=== PATIENT | male | born 1955 | race Caucasian/White ===

== ENCOUNTER → 2018-03-25 07:11 | Outpatient (CLI) | payer OTHER, SELFPAY ==
[2018-03-25 10:41] LABS: Absolute Lymphocyte Count 2.05 X10^3/ul (0.83-4.51); Absolute Neutrophil Count 1.8 X10^3/uL (2.0-7.7); Basophil# 0.01 X10^3/uL; Basophil% 0.2 % (0-1); Eosinophil# 0.11 X10^3/uL; Eosinophils% 2.5 % (0-5); Hematocrit 47.5 % (40-54); Hemoglobin 15.3 g/dl (13.0-16.5); Lymphocyte # 2.05 X10^3/ul (4.0); Mean Corp Hgb Conc 32.2 g/gl (32-36); Mean Corpuscular Hgb 27.4 pg (27.0-32.0); Mean Platelet Vol. 10.7 fl (6.2-12.0); Monocyte# 0.49 X10^3/uL; Neutrophil % 40.3 % (47-70); Platelet Count 187 K/mm3 (150-450); RBC Distribution Width CV 13.3 % (11.6-14.6); RBC Distribution Width SD 41.2 fl (35.1-43.9); Red Blood Count 5.59 M/mm3 (4.6-6.2); White Blood Count 4.5 K/mm3 (4.4-11.0)
[2018-03-25 10:47] LABS: POSITIVE COUNT NO; POSITIVE DIFFERENTIAL NO; POSITIVE MORPHOLOGY NO
[2018-03-25 10:53] LABS: ALB/GLOB Ratio 1.1 RATIO (0.9-2.4); AST(SGOT) 23 U/L (15-37); Alanine Aminotransfer ALT/SGPT 42 U/L (16-61); Albumin, Serum 3.9 g/dL (3.2-5.0); Alkaline Phosphatase 43 U/L (45-117); Anion Gap 6 (5-15); BUN 9 mg/dL (7-18); BUN/Creat Ratio 9.4 RATIO (10-20); Calcium,Total 9.1 mg/dL (8.5-10.1); Chloride 107 mmol/L (98-107); Cholesterol 196 mg/dL (200); Creatinine, Serum 0.96 mg/dL (0.70-1.30); EST Glomerular Filtration Rate 85 mL/min (>60); Est Glom Filt Rate - Afr Amer 103 mL/min (>60); Globulin 3.5 g/dL (2.2-4.2); Glucose 90 mg/dL (74-106); High Density Lipoprotein 41 mg/dL; PSA,Total- Diagnostic 3.37 ng/mL (0.0-4.0); Potassium 3.9 mmol/L (3.5-5.1); Protein, Total 7.4 g/dL (6.4-8.2); Sodium Level 142 mmol/L (136-145); Triglycerides 120 mg/dL; Very Low Density Lipoprotein 24 mg/dL (5-40)
== END ==
PROVIDERS: Family Provider Family Medicine; PCP Family Medicine; Visit Provider Family Medicine
DX: Z00.00 Encounter for general adult medical examination without abnormal findings (principal); R97.20 Elevated prostate specific antigen [PSA]; Z12.5 Encounter for screening for malignant neoplasm of prostate
CPT/HCPCS: 36415; 80053; 80061; 84153; 85025

== ENCOUNTER → 2019-01-13 06:08 | Outpatient (CLI) | payer OTHER, SELFPAY ==
[2019-01-13 07:33] LABS: Absolute Lymphocyte Count 2.24 X10^3/ul (0.83-4.51); Absolute Neutrophil Count 2.4 X10^3/uL (2.0-7.7); Basophil# 0.01 X10^3/uL; Basophil% 0.2 % (0-1); Eosinophil# 0.12 X10^3/uL; Eosinophils% 2.2 % (0-5); Hematocrit 47.2 % (40-54); Hemoglobin 15.9 g/dl (13.0-16.5); Lymphocyte # 2.24 X10^3/ul (4.0); Mean Corp Hgb Conc 33.7 g/gl (32-36); Mean Corpuscular Hgb 27.2 pg (27.0-32.0); Mean Corpuscular Volume 80.8 fL (80-94); Mean Platelet Vol. 10.6 fl (6.2-12.0); Monocyte# 0.66 X10^3/uL; Monocyte% 12.1 % (0-10); Neutrophil # 2.44 X10^3/uL (2.7-7.7); Neutrophil % 44.5 % (47-70); Platelet Count 185 K/mm3 (150-450); RBC Distribution Width CV 13.5 % (11.6-14.6); RBC Distribution Width SD 39.7 fl (35.1-43.9); Red Blood Count 5.84 M/mm3 (4.6-6.2); White Blood Count 5.5 K/mm3 (4.4-11.0)
[2019-01-13 07:38] LABS: POSITIVE COUNT NO; POSITIVE DIFFERENTIAL NO; POSITIVE MORPHOLOGY NO
[2019-01-13 08:08] LABS: ALB/GLOB Ratio 1.1 RATIO (0.9-2.4); AST(SGOT) 22 U/L (15-37); Alanine Aminotransfer ALT/SGPT 34 U/L (16-61); Albumin, Serum 3.7 g/dL (3.2-5.0); Alkaline Phosphatase 43 U/L (45-117); Anion Gap 7 (5-15); BUN 11 mg/dL (7-18); BUN/Creat Ratio 10.8 RATIO (10-20); Calcium,Total 8.9 mg/dL (8.5-10.1); Chloride 106 mmol/L (98-107); Cholesterol 199 mg/dL (200); Creatinine, Serum 1.02 mg/dL (0.70-1.30); EST Glomerular Filtration Rate 79 mL/min (>60); Est Glom Filt Rate - Afr Amer 95 mL/min (>60); Globulin 3.4 g/dL (2.2-4.2); Glucose 108 mg/dL (74-106); High Density Lipoprotein 43 mg/dL; PSA,Total - Annual Screen 4.05 ng/mL (0.00-4.00); Potassium 3.8 mmol/L (3.5-5.1); Protein, Total 7.1 g/dL (6.4-8.2); Sodium Level 143 mmol/L (136-145); Triglycerides 139 mg/dL; Very Low Density Lipoprotein 28 mg/dL (5-40)
== END ==
PROVIDERS: Family Provider Family Medicine; PCP Family Medicine; Referring Provider Family Medicine; Visit Provider Family Medicine
DX: Z00.00 Encounter for general adult medical examination without abnormal findings (principal); R73.01 Impaired fasting glucose; Z12.5 Encounter for screening for malignant neoplasm of prostate
CPT/HCPCS: 36415; 80053; 80061; 83036; 84153; 85025; G0103

== ENCOUNTER → 2020-02-16 07:11 | Outpatient (CLI) | payer OTHER, SELFPAY ==
[2020-02-16 10:55] LABS: ALB/GLOB Ratio 1.2 RATIO (0.9-2.4); AST(SGOT) 14 U/L (15-37); Alanine Aminotransfer ALT/SGPT 32 U/L (16-61); Albumin, Serum 3.8 g/dL (3.2-5.0); Alkaline Phosphatase 50 U/L (45-117); Anion Gap 7 (5-15); BUN 10 mg/dL (7-18); BUN/Creat Ratio 10.6 RATIO (10-20); Calcium,Total 8.9 mg/dL (8.5-10.1); Chloride 105 mmol/L (98-107); Cholesterol 183 mg/dL (200); Creatinine, Serum 0.94 mg/dL (0.70-1.30); EST Glomerular Filtration Rate 86 mL/min (>60); Est Glom Filt Rate - Afr Amer 104 mL/min (>60); Globulin 3.3 g/dL (2.2-4.2); Glucose 97 mg/dL (74-106); High Density Lipoprotein 41 mg/dL; PSA,Total - Annual Screen 4.68 ng/mL (0.00-4.00); Protein, Total 7.1 g/dL (6.4-8.2); Sodium Level 141 mmol/L (136-145); Triglycerides 132 mg/dL; Very Low Density Lipoprotein 26 mg/dL (5-40)
[2020-02-16 11:39] LABS: Hemoglobin A1c 5.8 % (3.8-5.6)
== END ==
PROVIDERS: PCP Family Medicine; Referring Provider Family Medicine; Visit Provider Family Medicine
DX: Z00.00 Encounter for general adult medical examination without abnormal findings (principal); R73.03 Prediabetes; Z12.5 Encounter for screening for malignant neoplasm of prostate
CPT/HCPCS: 36415; 80053; 80061; 83036; 84153; G0103

== ENCOUNTER → 2020-12-15 07:30 | Outpatient (CLI) | payer OTHER, SELFPAY ==
[2020-12-15 10:21] LABS: Absolute Lymphocyte Count 2.08 X10^3/uL (0.83-4.51); Absolute Neutrophil Count 3.2 X10^3/uL (2.0-7.7); Basophil# 0.03 X10^3/uL; Basophil% 0.5 % (0-1); Eosinophil# 0.15 X10^3/uL; Eosinophils% 2.5 % (0-5); Hematocrit 49.2 % (40-54); Hemoglobin 15.7 g/dL (13.0-16.5); Lymphocyte # 2.08 X10^3/ul (0.83-4.51); Lymphocyte % 34.3 % (19-41); Mean Corp Hgb Conc 31.9 g/dL (32-36); Mean Corpuscular Hgb 27.2 pg (27.0-32.0); Mean Corpuscular Volume 85.3 fL (80-94); Mean Platelet Vol. 10.6 fl (6.2-12.0); Monocyte# 0.61 X10^3/uL; NRBC Flagged by Analyzer 0 % (0-5); Neutrophil # 3.19 X10^3/uL (2.7-7.7); Neutrophil % 52.5 % (47-70); Platelet Count 190 K/mm3 (150-450); RBC Distribution Width SD 40.6 fl (35.1-43.9); Red Blood Count 5.77 M/mm3 (4.6-6.2); White Blood Count 6.1 K/mm3 (4.4-11.0)
[2020-12-15 10:39] LABS: Hemoglobin A1c 5.6 % (3.8-5.6)
[2020-12-15 10:48] LABS: ALB/GLOB Ratio 1.3 RATIO (0.9-2.4); AST(SGOT) 17 U/L (15-37); Alanine Aminotransfer ALT/SGPT 32 U/L (16-61); Albumin, Serum 4.1 g/dL (3.2-5.0); Alkaline Phosphatase 51 U/L (45-117); Anion Gap 5 (5-15); BUN 10 mg/dL (7-18); BUN/Creat Ratio 12.3 RATIO (10-20); Chloride 104 mmol/L (98-107); Cholesterol 203 mg/dL (200); Creatinine, Serum 0.81 mg/dL (0.70-1.30); EST Glomerular Filtration Rate 102 mL/min (>60); Est Glom Filt Rate - Afr Amer 123 mL/min (>60); Globulin 3.1 g/dL (2.2-4.2); Glucose 95 mg/dL (74-106); High Density Lipoprotein 50 mg/dL; Potassium 3.8 mmol/L (3.5-5.1); Protein, Total 7.2 g/dL (6.4-8.2); Sodium Level 140 mmol/L (136-145); Triglycerides 181 mg/dL; Very Low Density Lipoprotein 36 mg/dL (5-40)
[2020-12-16 20:45] LABS: V-Zoster IgG (Immunity) 829 index (Immune >165)
== END ==
PROVIDERS: PCP Family Medicine; Referring Provider Family Medicine; Visit Provider Family Medicine
DX: Z00.00 Encounter for general adult medical examination without abnormal findings (principal); R73.03 Prediabetes; R97.20 Elevated prostate specific antigen [PSA]; Z28.3 Underimmunization status
CPT/HCPCS: 36415; 80053; 80061; 83036; 84153; 85025; 86787

== ENCOUNTER 2021-11-23 09:26 | Outpatient (CLI) | payer OTHER, SELFPAY ==
[2021-11-23 09:51] LABS: Absolute Lymphocyte Count 2.57 X10^3/uL (0.83-4.51); Absolute Neutrophil Count 3.5 X10^3/uL (2.0-7.7); Basophil# 0.03 X10^3/uL; Basophil% 0.4 % (0-1); Eosinophil# 0.15 X10^3/uL; Eosinophils% 2.2 % (0-5); Hemoglobin 15.5 g/dL (13.0-16.5); Lymphocyte # 2.57 X10^3/ul (0.83-4.51); Lymphocyte % 37.2 % (19-41); Mean Platelet Vol. 10.3 fl (6.2-12.0); Monocyte# 0.61 X10^3/uL; Monocyte% 8.8 % (0-10); NRBC Flagged by Analyzer 0 % (0-5); Neutrophil # 3.53 X10^3/uL (2.7-7.7); Neutrophil % 51.1 % (47-70); Platelet Count 206 K/mm3 (150-450); RBC Distribution Width CV 12.5 % (11.6-14.6); RBC Distribution Width SD 38.7 fl (35.1-43.9); Red Blood Count 5.53 M/mm3 (4.6-6.2); White Blood Count 6.9 K/mm3 (4.4-11.0)
[2021-11-23 10:07] LABS: Hemoglobin A1c 5.8 % (3.8-5.6)
[2021-11-23 10:30] LABS: ALB/GLOB Ratio 1.3 RATIO (0.9-2.4); AST(SGOT) 17 U/L (15-37); Alanine Aminotransfer ALT/SGPT 39 U/L (16-61); Albumin, Serum 4.1 g/dL (3.2-5.0); Alkaline Phosphatase 42 U/L (45-117); Anion Gap 3 (5-15); BUN 12 mg/dL (7-18); BUN/Creat Ratio 13.5 RATIO (10-20); Calcium,Total 9.1 mg/dL (8.5-10.1); Chloride 106 mmol/L (98-107); Cholesterol 214 mg/dL (200); Creatinine, Serum 0.89 mg/dL (0.70-1.30); EST Glomerular Filtration Rate 92 mL/min (>60); Est Glom Filt Rate - Afr Amer 111 mL/min (>60); Globulin 3.2 g/dL (2.2-4.2); Glucose 104 mg/dL (74-106); High Density Lipoprotein 47 mg/dL; PSA,Total - Annual Screen 5.35 ng/mL (0.00-4.00); Potassium 3.9 mmol/L (3.5-5.1); Protein, Total 7.3 g/dL (6.4-8.2); Sodium Level 141 mmol/L (136-145); Thyroid Stim Hormone (TSH) 0.71 uIU/mL (0.358-3.74); Triglycerides 173 mg/dL; Very Low Density Lipoprotein 35 mg/dL (5-40)
[2021-11-25 08:46] LABS: Testosterone Free 6.8 pg/mL (6.6-18.1)
== END 2021-11-23 23:59 | disposition home or self-care (01) ==
LOC: PAVLAB 09:28
PROVIDERS: PCP Family Medicine; Referring Provider Family Medicine; Visit Provider Family Medicine
DX: Z00.00 Encounter for general adult medical examination without abnormal findings (principal); R73.03 Prediabetes; R53.83 Other fatigue
CPT/HCPCS: 36415; 80053; 80061; 83036; 84153; 84402; 84403; 84443; 85025; G0103

== ENCOUNTER → 2022-12-06 | Outpatient (CLI) | payer MEDICARE, OTHER, SELFPAY ==
[2022-12-06 12:24] LABS: Absolute Lymphocyte Count 2.42 X10^3/uL (0.83-4.51); Absolute Neutrophil Count 2.8 X10^3/uL (2.0-7.7); Basophil# 0.02 X10^3/uL; Basophil% 0.3 % (0-1); Eosinophil# 0.18 X10^3/uL; Hematocrit 47.5 % (40-54); Hemoglobin 15.2 g/dL (13.0-16.5); Lymphocyte # 2.42 X10^3/ul (0.83-4.51); Lymphocyte % 40.3 % (19-41); Mean Corpuscular Hgb 27.8 pg (27.0-32.0); Mean Corpuscular Volume 86.8 fL (80-94); Mean Platelet Vol. 10.6 fl (6.2-12.0); NRBC Flagged by Analyzer 0 % (0-5); Neutrophil # 2.78 X10^3/uL (2.7-7.7); Neutrophil % 46.2 % (47-70); Platelet Count 207 K/mm3 (150-450); RBC Distribution Width CV 13.1 % (11.6-14.6); RBC Distribution Width SD 41.1 fl (35.1-43.9); Red Blood Count 5.47 M/mm3 (4.6-6.2)
[2022-12-06 12:48] LABS: ALB/GLOB Ratio 1.3 RATIO (0.9-2.4); AST(SGOT) 21 U/L (15-37); Alanine Aminotransfer ALT/SGPT 39 U/L (16-61); Albumin, Serum 3.9 g/dL (3.2-5.0); Alkaline Phosphatase 37 U/L (45-117); Anion Gap 3 (5-15); BUN 12 mg/dL (7-18); BUN/Creat Ratio 14.4 RATIO (10-20); Calcium,Total 9.3 mg/dL (8.5-10.1); Chloride 104 mmol/L (98-107); Cholesterol 199 mg/dL (200); Creatinine, Serum 0.83 mg/dL (0.70-1.30); EST Glomerular Filtration Rate 99 mL/min (>60); Est Glom Filt Rate - Afr Amer 119 mL/min (>60); Glucose 109 mg/dL (74-106); High Density Lipoprotein 45 mg/dL; PSA,Total - Annual Screen 3.97 ng/mL (0.00-4.00); Potassium 3.7 mmol/L (3.5-5.1); Protein, Total 6.9 g/dL (6.4-8.2); Sodium Level 137 mmol/L (136-145); Triglycerides 173 mg/dL; Very Low Density Lipoprotein 35 mg/dL (5-40)
[2022-12-06 12:49] LABS: Erythrocyte Sedimentation Rate < 1 mm/hr (0-20)
[2022-12-06 13:12] LABS: Hemoglobin A1c 5.7 % (3.8-5.6)
== END | disposition home or self-care (01) ==
LOC: BFHLAB 08:10
PROVIDERS: PCP Family Medicine; Referring Provider Family Medicine; Visit Provider Family Medicine
DX: R73.03 Prediabetes (principal); I10 Essential (primary) hypertension; M25.511 Pain in right shoulder; M25.512 Pain in left shoulder; Z12.5 Encounter for screening for malignant neoplasm of prostate
CPT/HCPCS: 36415; 80053; 80061; 83036; 84153; 85025; 85652; G0103

== ENCOUNTER → 2024-03-11 | Outpatient (CLI) | payer MEDICARE, OTHER, SELFPAY ==
[2024-03-11 08:36] LABS: Absolute Lymphocyte Count 2.65 X10^3/uL (0.83-4.51); Absolute Neutrophil Count 2.9 X10^3/uL (2.0-7.7); Basophil# 0.03 X10^3/uL; Basophil% 0.5 % (0-1); Eosinophil# 0.19 X10^3/uL; Hematocrit 45.8 % (40-54); Hemoglobin 15.2 g/dL (13.0-16.5); Lymphocyte # 2.65 X10^3/ul (0.83-4.51); Lymphocyte % 41.4 % (19-41); Mean Corp Hgb Conc 33.2 g/dL (32-36); Mean Corpuscular Hgb 27.5 pg (27.0-32.0); Mean Platelet Vol. 10.6 fl (6.2-12.0); Monocyte# 0.63 X10^3/uL; Monocyte% 9.8 % (0-10); NRBC Flagged by Analyzer 0 % (0-5); Neutrophil # 2.89 X10^3/uL (2.7-7.7); Neutrophil % 45.1 % (47-70); Platelet Count 195 K/mm3 (150-450); RBC Distribution Width CV 13.2 % (11.6-14.6); RBC Distribution Width SD 39.6 fl (35.1-43.9); Red Blood Count 5.52 M/mm3 (4.6-6.2); White Blood Count 6.4 K/mm3 (4.4-11.0)
[2024-03-11 09:20] LABS: ALB/GLOB Ratio 1.1 RATIO (0.9-2.4); AST(SGOT) 18 U/L (15-37); Alanine Aminotransfer ALT/SGPT 23 U/L (16-61); Albumin, Serum 3.9 g/dL (3.2-5.0); Alkaline Phosphatase 43 U/L (45-117); Anion Gap 5 (5-15); BUN 10 mg/dL (7-18); BUN/Creat Ratio 10.2 RATIO (10-20); Calcium,Total 9.2 mg/dL (8.5-10.1); Chloride 106 mmol/L (98-107); Cholesterol 209 mg/dL (200); Creatinine, Serum 0.98 mg/dL (0.70-1.30); EST Glomerular Filtration Rate 81 mL/min (>60); Est Glom Filt Rate - Afr Amer 98 mL/min (>60); Globulin 3.4 g/dL (2.2-4.2); Glucose 97 mg/dL (74-106); High Density Lipoprotein 45 mg/dL; PSA,Total - Annual Screen 4.69 ng/mL (0.00-4.00); Potassium 3.7 mmol/L (3.5-5.1); Protein, Total 7.3 g/dL (6.4-8.2); Sodium Level 140 mmol/L (136-145); Triglycerides 175 mg/dL; Very Low Density Lipoprotein 35 mg/dL (5-40)
== END | disposition home or self-care (01) ==
LOC: LAB 07:25
PROVIDERS: PCP Family Medicine; Referring Provider Family Medicine; Visit Provider Family Medicine
DX: I10 Essential (primary) hypertension (principal); E87.1 Hypo-osmolality and hyponatremia; R97.20 Elevated prostate specific antigen [PSA]; R73.03 Prediabetes; Z12.5 Encounter for screening for malignant neoplasm of prostate
CPT/HCPCS: 36415; 80053; 80061; 83036; 84153; 85025; G0103

== ENCOUNTER → 2024-06-16 | Outpatient (CLI) | payer MEDICARE, OTHER, SELFPAY ==
[2024-06-18 16:10] LABS: Endomysial Antibody IgA Negative (Negative); Immunoglobulin A 35 mg/dL (61-437); t-Transglutaminase IgA <2 U/mL (0-3)
== END | disposition home or self-care (01) ==
LOC: LAB 15:00
PROVIDERS: PCP Family Medicine; Referring Provider Student in an Organized Health Care Education/Training Program; Visit Provider Student in an Organized Health Care Education/Training Program
DX: R14.0 Abdominal distension (gaseous) (principal)
CPT/HCPCS: 36415; 82784; 83516; 86255

== ENCOUNTER 2024-07-06 05:51 | Day surgery (SDC) | payer MEDICARE, OTHER, SELFPAY ==
[2024-07-06] VITALS (8 sets, daily range): BP systolic 90–165; BP diastolic 55–81; PULSE 67–74; RESP 16–18; TEMP 36.2–37; O2SAT 97–100; BMI 25.2
--- NOTE | 2024-07-06 06:38 | PRE.ANES_ITS ---
ASA Classification* ASA Classification ASA Classification: 2 Assessment & Plan Anesthesia* Anesthesia Assessment Anesthesia Assessment: Discussed sedation and/or anesthesia options, risks, benefits, and alternatives with patient/parents/legal guardian/POA. Questions invited. The patient/parents/legal guardian/POA seems to understand and agrees to proceed with anesthesia plan. Reviewed the physical assessment, medical history, allergy history and patient home medications list prior to surgery/procedure/anesthetic and documented any changes. Performed airway and anesthesia risk assessments. Anesthesia Type Anesthesia Type: MAC Anesthesia Focused Assessment* Temperature: 97.1 F Pulse Rate: 74 Blood Pressure: 165/81 Respiratory Rate: 16 Pulse Ox: 100 Airway Assessment Mouth opens: >3 cm Mallampati Score: II Focused Labs Anesthesia Preop lab: CBC WBC 6.4 K/mm3 (4.4-11.0) 03/11/24 07:26 RBC 5.52 M/mm3 (4.6-6.2) 03/11/24 07:26 Hgb 15.2 g/dL (13.0-16.5) 03/11/24 07:26 Hct 45.8 % (40-54) 03/11/24 07:26 Plt Count 195 K/mm3 (150-450) 03/11/24 07:26 CHEMISTRY Potassium 3.7 mmol/L (3.5-5.1) 03/11/24 07:26 Sodium 140 mmol/L (136-145) 03/11/24 07:26 BUN 10 mg/dL (7-18) 03/11/24 07:26 Creatinine 0.98 mg/dL (0.70-1.30) 03/11/24 07:26 Glucose 97 mg/dL (74-106) 03/11/24 07:26 TSH 0.71 uIU/mL (0.358-3.74) 11/23/21 09:30 COAG Pre-Assessment Diagnosis/Proposed Procedure Planned Operative Procedure(s): COLONOSCOPY Anesthesia History 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 When Was Last Pacemaker Check QUESTION #4 FULL TEXT: You/Your Family Experience fever (hyperthermia) with Anesthesia Last Oral Intake Last Oral intake: Last Oral Intake NPO since 03:00 07/06/24 06:16 Meds taken in AM with sips of No 07/06/24 06:16 water? Meds patient instructed to take am of surgery PONV PONV - radiation control health physicist: PONV - radiation control health physicist Female No 07/02/24 10:29 HX of Motion Sickness Yes 07/02/24 10:29 HX of N/V After Surgery No 07/02/24 10:29 Non-Smoker Yes 07/02/24 10:29 Duration of Surgery greater No 07/02/24 10:29 than 60 minutes Number of Risk Factors 2 07/02/24 10:29 PONV Score Moderate Risk 07/02/24 10:29 Height & Weight Height & Weight: Anesthesia: Height & Weight Height 5 ft 11 in 07/06/24 06:16 Weight: 82 kg 07/06/24 06:16 Body Mass Index (BMI) 25.2 07/06/24 06:16 Respiratory Assessment Respiratory Assessment - radiation control health physicist: Respiratory Tract Infection Hx - radiation control health physicist Hx Respiratory Tract Infection No 07/02/24 10:29 STOP Sleep Apnea STOP Sleep Apnea - radiation control health physicist: STOP Sleep Apnea - radiation control health physicist Hx Hypertension No 07/02/24 10:29 Hx Sleep Apnea No 07/02/24 10:29 CPAP No 04/27/15 08:26 BIPAP No 04/22/15 13:24 Do you snore loudly (louder Yes 07/02/24 10:29 than talking or can be heard Do you often feel tired/ No 07/02/24 10:29 fatigued/ sleepy during daytime? Has anyone observed you stop No 07/02/24 10:29 breathing during sleep? STOP Results Negative 07/02/24 10:29 QUESTION #5 FULL TEXT : Do you snore loudly (louder than talking or can be heard through closed doors)? Tobacco Use History Tobacco Use History - radiation control health physicist: Tobacco Use History - radiation control health physicist Tobacco Use Smoking Status Never smoker 07/02/24 10:29 Hx Tobacco Use No 07/02/24 10:29 Years Smoking Packs Smoked per Day Smoking Cessation Date was within the last 15 years Hx Smoking Cessation Date Hx Smoking Cessation Counseling Hematologic Medial History Hematologic Hx - radiation control health physicist: Hematologic Medical Hx - steward/stewardess second Hx of Blood Transfusion No 07/02/24 10:29 Hx of Transfusion in last 3 No 07/02/24 10:29 Months Date of Last Transfusion (if within last 3 months) Ever experience any problems No 07/02/24 10:29 with transfusion(s)? Specify any problems Hx of Preganancy in last 3 N/A 07/02/24 10:29 Months Nurse Filling Out Transfusion [email or web address] 07/02/24 10:29 & Questions: Date: 07/02/24 07/02/24 10:29 Time: 10:32 07/02/24 10:29 Patient unable to answer at this time (ie. confused, unrespo /Reproduction History /Reproductive History - radiation control health physicist: /Reproductive Hx- radiation control health physicist Hx Now Gestational Age (in weeks): EDC: Hx Hx Para Hx Section SAB PFSH Medical History Wears glasses Deviated septum Kidney stones Glaucoma suspect Nummular eczema Benign hematuria BPH (benign prostatic hyperplasia) Hip pain Hypertriglyceridemia Elevated PSA Osteoarthritis of hands, bilateral Costal chondritis Fibromyalgia Arthritis Irritable bowel syndrome Hypertension Prediabetes Home Medications ?Medication ?Instructions ?Recorded ?Last Taken ?Type omega-3 acid ethyl esters 1 gram 2 g PO DAILY 04/22/15 Unknown History capsule hydrocodone-acetaminophen 5-325mg 1 - 2 tab PO Q4H PRN PRN Pain ##20 04/27/15 Unknown Rx 5mg-325mg vitamin B complex 1 tab PO QDAY 05/19/24 Unknown History Allergy/AdvReac Type Severity Reaction Status Date / Time shrimp Allergy Other Verified 05/25/24 07:42 Sulfa (Sulfonamide Allergy Rash Verified 05/25/24 07:42 Antibiotics) latanoprost AdvReac Other Verified 05/25/24 07:42 Family History Brother Diabetes Sister Diabetes Grandmother Diabetes Grandfather Diabetes Mother High cholesterol Joint pain Father High cholesterol Hypertension Surgical History H/O removal of cyst Social History Smoking Status: Never smoker alcohol intake: never what type of physical activity do you participate in: bicycling frequency: 3-4 times per week Review of Systems (Anesthesia) ROS Narrative System reviewed and no additional complaints, except as documented.
--- NOTE | 2024-07-06 06:46 | HP.PCM_ITS ---
History and Physical Date of Admission: 07/06/24 Chief Complaint: Positive Cologuard Details: ERICK HAUSER, is a 68 M who presents to the office today for establishment with [facility]. Pt has a PMHx elevated PSA, OA, fibromyalgia, IBS and HTN. Here is here today for evaluation after a positive Cologuard test. He tells me his last colonoscopy was about 15 years ago without any abnormalities or polyps. He has recently noticed some increased bloating and increased stool frequency but nothing else. He has always had issues with bloating after eating certain foods like gluten, peanuts and fried food. He has had food allergen testing in the past which was normal. He has never been tested for celiac disease. He denies abdominal pain, n/v, heartburn, constipation, diarrhea or melena. ROS Const Constitutional: No anorexia, fatigue, fever(s), weight change or sleep problems Eyes Eyes: No change in vision ENT ENT: No abnormal hearing, difficulty swallowing, mouth lesions, tongue swelling or throat swelling Resp Respiratory: No cough or shortness of breath Cardio Cardiology: No chest pain at rest, chest pain with exertion, shortness of breath or dyspnea on exertion Gastro GI: Positive for bloating and other (increased stool frequency ); No difficulty swallowing Genitourinary Male: No difficulty urinating or burning urination Musc Musculoskeletal: No joint pain, joint swelling, muscle weakness or decreased muscle mass Skin Skin: No hair loss in leg, yellowing of the eye, itchy eyes, rash, skin ulcer or skin swelling Neuro Neurology: No abnormal hearing, abnormal movements, confusion, unsteady gait/balance or memory loss Psych Psychiatric: No anxiety, No confusion and No memory loss Endo Endocrine: No fatigue or weight change Aller/Imm Allergy/Immunologic: No itchy eyes, throat swelling or tongue swelling Edu/Lymp Hematologic/Lymphatic: No easy bleeding, easy bruising or enlarged lymph nodes Exam Const General: cooperative and comfortable Nutritional Appearance: average body habitus and well nourished [facility] Head: normal to inspection Ears: hearing grossly normal bilaterally Nose: external nose normal Face and sinus: normal facial exam Eyes General: appearance normal, both eyes and all related structures Neck Neck: normal visual inspection Chest Chest palpation & inspection: normal inspection of the chest Resp Effort & Inspection: normal respiratory effort Cardio Palpation: normal PMI Rate: regular rate Rhythm: regular rhythm GI Inspection: normal to inspection Auscultation: normal bowel sounds Palpation: no hepatosplenomegaly Skin General: no rashes or lesions noted Neuro General: patient alert Extrem General: normal to inspection Psych Affect: normal affect Assessment and Plan Assessment and Plan (1) Abdominal bloating: Status: Acute (2) Positive colorectal cancer screening using Cologuard test: Status: Acute Plan: Pt is a 68 yo male here today for evaluation after having a positive Cologuard test. His last colonoscopy was 15 years ago without abnormalities. He has noticed some increased bloating and stool frequency but denies other abdominal symptoms. He mentioned having some issues with bloating when he eats foods with gluten. I recommended we test for Celiac since he has never had this done before. He declines food allergy testing. I will order blood testing for Celiac disease. He should also undergo colonoscopy for his positive colorectal cancer screening. He is agreeable to this and will be scheduled. All questions answered. -Colonoscopy -Celiac disease blood work -f/u as needed pending colonposcy and blood work results Orders: Orders Celiac Disease Profile Today R14.0 - Abdominal distension (gaseous) I have examined the patient and the H&P has been reviewed. There are no clinical changes since date of exam.
--- NOTE | 2024-07-06 07:40 | OP.COLON_ITS ---
Patient Name: Chris Maki Procedure Date: 07/06/2024 7:13 AM Date of : 1955 Age: 68 Procedure: Colonoscopy Indications: Screening for colorectal malignant neoplasm Providers: Loco Walker DO Referring MD: Ayush Andino Medicines: Monitored Anesthesia Care Patient Profile: This is a 68 year old male. Refer to note in patient chart for documentation of history and physical. Last Colonoscopy: date unknown. Unable to locate last colonoscopy report. Complications: No immediate complications. Procedure: Pre-Anesthesia Assessment: - Prior to the procedure, a History and Physical was performed, and patient medications and allergies were reviewed. The patient is competent. The risks and benefits of the procedure and the sedation options and risks were discussed with the patient. All questions were answered and informed consent was obtained. Patient identification and proposed procedure were verified by the physician. Mental Status Examination: alert and oriented. Prophylactic Antibiotics: The patient does not require prophylactic antibiotics. Prior Anticoagulants: The patient has taken no anticoagulant or antiplatelet agents except for NSAID medication. ASA Grade Assessment: II - A patient with mild systemic disease. After reviewing the risks and benefits, the patient was deemed in satisfactory condition to undergo the procedure. The anesthesia plan was to use monitored anesthesia care (MAC). Immediately prior to administration of medications, the patient was re-assessed for adequacy to receive sedatives. The heart rate, respiratory rate, oxygen saturations, blood pressure, adequacy of pulmonary ventilation, and response to care were monitored throughout the procedure. The physical status of the patient was re-assessed after the procedure. After I obtained informed consent, the scope was passed under direct vision. Throughout the procedure, the patient's blood pressure, pulse, and oxygen saturations were monitored continuously. The colonoscope was introduced through the anus and advanced to the cecum, identified by appendiceal orifice and ileocecal valve. The colonoscopy was performed without difficulty. The patient tolerated the procedure well. The quality of the bowel preparation was adequate. The ileocecal valve, appendiceal orifice, and rectum were photographed. Scope In: 7:25:28 AM Scope Withdrawal Time 0 hours 6 minutes 32 seconds Scope Out: 7:35:28 AM Total Procedure Duration Time 0 hours 10 minutes 0 seconds Findings: The perianal and digital rectal examinations were normal. A few small-mouthed diverticula were found in the recto-sigmoid colon and sigmoid colon. The exam was otherwise without abnormality on direct and retroflexion views. Impression: - Diverticulosis in the recto-sigmoid colon and in the sigmoid colon. - The examination was otherwise normal on direct and retroflexion views. - No specimens collected. Recommendation: - Discharge patient to home. - Resume previous diet. - Continue present medications. - Repeat colonoscopy in 10 years for screening purposes. Procedure Code(s): --- Professional --- G0121, Colorectal cancer screening; colonoscopy on individual not meeting criteria for high risk CPT copyright 2021 [employer]. All rights reserved. The codes documented in this report are preliminary and upon chemistry intern review may be revised to meet current compliance requirements. Looc Walker DO 07/06/2024 7:39:59 AM This report has been signed electronically. Number of Addenda: 0 Note Initiated On: 07/06/2024 7:13 AM
--- NOTE | 2024-07-06 07:40 | OP.CCLET_ITS ---
07/06/2024 Ayush Andino [id number] [place] [address] Re : Colonoscopy procedure for Chris Maki Dear Dr. Andino This procedure was performed on Saturday, July 06, 2024. My impressions and recommendations are as follows: Impressions : - Diverticulosis in the recto-sigmoid colon and in the sigmoid colon. - The examination was otherwise normal on direct and retroflexion views. - No specimens collected. Recommendations : - Discharge patient to home. - Resume previous diet. - Continue present medications. - Repeat colonoscopy in 10 years for screening purposes. My findings are described in the full procedure note, which is enclosed. If I can be of further assistance, please feel free to contact me at . Sincerely, Loco Walker, 07/06/2024 7:39:59 AM This report has been signed electronically.
--- NOTE | 2024-07-06 07:44 | PCM.POST.ANE ---
Anesthesia: Postop Eval I Current Vital Signs Temperature: 97.7 F Pulse Rate: 74 Blood Pressure: 103/63 Respiratory Rate: 16 Pulse Ox: 97 Oxygen Delivery Method: Room Air Assessment Airway patent: Yes Spontaneous unlabored respirations: Yes Mental status: Asleep nausea: No Vomiting: No Anesthesia Complication: No Fluid Hydration Crystalloid volume administer (ml): 40 Total IV fluid infused: 40 Progress Note Anesthesia document: Postop Eval 1 completed: Yes
--- NOTE | 2024-07-06 09:21 | PCM.POSTANE2 ---
Anesthesia Postop Eval I Sum Postop Eval Completion status Anesthesia document: Postop Eval 1 completed: Yes Anesthesia Postop Eval I Summary Anesthesia Postop Eval I Summary: Anesthesia Postop Eval I: Assessment Summary Airway patent Yes 07/06/24 07:44 [email or web address] Spontaneous unlabored Yes 07/06/24 07:44 [email or web address] respirations Mental status Asleep 07/06/24 07:44 [email or web address] nausea No 07/06/24 07:44 [email or web address] Vomiting No 07/06/24 07:44 [email or web address] Anesthesia Postop Eval I: Fluid Summary Crystalloid volume administer 40 07/06/24 07:44 [email or web address] (ml) Colloids volume administered ( ml) Blood Product volume administered (ml) Total IV fluid infused 40 07/06/24 07:44 [email or web address] Anesthesia Postop Eval I: Summary Notes Anesthesia Complication No 07/06/24 07:44 [email or web address] Anesthesia Complication Comment: Post-operative progress note Anesthesia: Postop Eval II Evaluation Mental status: Awake Pain Level: 0 nausea: No Vomiting: No
== END 2024-07-06 08:29 | disposition home or self-care (01) ==
LOC: EN 05:51 → AC 05:52
PROVIDERS: PCP Family Medicine; Referring Provider Family Medicine; Visit Provider Internal Medicine Gastroenterology
PROC: 0DJD8ZZ Inspection of Lower Intestinal Tract, Via Natural or Artificial Opening Endoscopic (ICD-10-PCS; CPT 45378; principal; 2024-07-06 06:55)
DX: Z12.11 Encounter for screening for malignant neoplasm of colon (principal); K57.30 Diverticulosis of large intestine without perforation or abscess without bleeding; R14.0 Abdominal distension (gaseous); R19.5 Other fecal abnormalities
CPT/HCPCS: G0121; A4216; J2405

== ENCOUNTER → 2024-11-12 | Outpatient (CLI) | payer MEDICARE, OTHER, SELFPAY | END | disposition home or self-care (01) | LOC: PSN 06:43 | PROVIDERS: PCP Family Medicine; Referring Provider Family Medicine; Visit Provider Family Medicine | DX: R00.2 Palpitations (principal) | CPT/HCPCS: 93225; 93226 ==

== ENCOUNTER → 2025-05-14 | Outpatient (CLI) | payer MEDICARE, OTHER, SELFPAY ==
--- OUTSIDE RECORDS SUMMARY | 2025-05-14 07:25 | XMS RPT_ITS | CCD ---
Author Organization [facility] Care Team Providers Care Computer Systems Design Analyst Name Role Phone Dr. Ayush Andino DO Primary Care Provider Dr. Ayush Andino DO Attending Provider Dr. Ayush Andino DO Referring Provider [phone] [place] AMADOR, Dr. Aguilar Attending Provider Ayush Andino Referring Unavailable Ayush Andino Primary Care Unavailable Friend, Loco Consulting Unavailable Friend, Loco Attending Unavailable Friend, Loco Attending Unavailable Ayush Andino Referring Unavailable Thu, Ayush Primary Care Unavailable Thu, Ayush Referring Unavailable Thu, Ayush Primary Care Unavailable ThuAyush dinero Attending Unavailable ChuchonasEvelyn agudelo Attending Unavailable ChuchonasEvelyn agudelo Referring Unavailable Thu, Ayush Primary Care Unavailable Thu, Ayush Referring Unavailable Thu, Ayush Primary Care Unavailable ThuAyush dinero Attending Unavailable AtanasovEvelyn Attending Unavailable ThuAyush dinero Referring Unavailable Thu, Ayush Primary Care Unavailable Thu, Ayush Referring Unavailable Jeff Mead Attending Unavailable ThuAyush dinero Primary Care Unavailable Allergies Allergy Classification Reported Allergen(s) Allergy Type Date of Onset Reaction(s) Facility (4 sources) Sulfonamides (Antibiotic); Translations: [Sulfa (Sulfonamide Antibiotics)] Allergy to substance [address] [facility] (1 source) latanoprost Drug Allergy [address] [facility] Comment on above: heart flutter (1 source) shrimp allergenic extract Drug Allergy [address] [facility] (1 source) latanoprost Drug Allergy [address] [facility] Repository (1 source) Shrimp product Drug allergy (disorder) [address] [facility] Repository Medications Current Medications Medication Drug Class(es) Dates Sig (Normalized) Sig (Original) acetaminophen 325 mg / HYDROcodone bitartrate 5 mg oral tablet (3 sources) Opioid Agonist Start: 04-27-2015 Hydrocodone-Acetam inophen 1 TABLET tablet Active 1 - 2 {tbl} PO EVERY 4 HOURS NEEDED as needed for Pain April 27, 2015 12:00am Start: 04-27-2015 take 1 tablet by arthur th every four hours as needed Hydrocodone-Acetaminophen Active 1 - 2 TABLET PO EVERY 4 HOURS NEEDED April 27, 2015 8:06am omega-3 acid ethyl esters (fdc) 1000 mg oral capsule (3 sources) Start: 04-22-2015 take 1 capsule by mouth once daily [place]-3 Acid Ethyl Esters 1 GM capsule Active 2 g PO DAILY April 22, 2015 12:00am Vitamin B Complex tablet (1 source) Start: 05-19-2024 Vitamin B Comp scar tablet Active 1 {tbl} PO daily May 19, 2024 12:00am Problems Active Problems Problem Classification Problem Date Documented Da te Episodic/Chronic Cardiac dysrhythmias (1 source) Palpitations; Translations: [Palpitations] Onset: 11-17-2024 Episodic Essential hypertension (2 sources) Hypertensive disorder; Translations: [Essential (primary) hypertension] Onset: 04-05-2024 05-19-2024 Chronic Glaucoma (1 source) Preglaucoma, unspecified, unspecified eye; Translations: [Glaucoma suspect] 05-19-2024 Chronic Osteoarthritis (2 sources) Arthritis; Translations: [Unspecified osteoarthritis, unspecified site] 05-19-2024 Chronic Other bone disease and musculoskeletal deformities (1 source) Costal chondritis; Translations: [Chondrocostal junction syndrome [Tietze]] 05-19-2024 Episodic Other connective tissue disease (1 source) Fibromyalgia; Translations: [Fibromyalgia] 05-19-2024 Episodic Other gastrointestinal disorders (1 source) Irritable bowel syndrome; Translations: [Irritable bowel syndrome without diarrhea] 05-19-2024 Chronic Other gastrointestinal disorders (1 source) Abdominal bloating; Translations: [Abdominal distension (gaseous)] 05-25-2024 Episodic Other gastrointestinal disorders (1 source) Stool DNA-based colorectal cancer screening positive; Translations: [Other fecal abnormalities] 05-25-2024 Episodic Past or Other Problems Problem Classification Problem Date Documented Da te Episodic/Chronic Other gastrointestinal disorders (1 source) Abdominal distension (gaseous); Translations: [Abdominal distension (gaseous)] Onset: 07-07-2024 Episodic Other gastrointestinal disorders (1 source) Other fecal abnormalities; Translations: [Other fecal abnormalities] Onset: 05-25-2024 Episodic Other screening for suspected conditions (not mental disorders or infectious disease) (2 sources) Raised prostate specific antigen; Translations: [Elevated prostate specific antigen [PSA]] Onset: 08-02-2024 05-19-2024 Episodic Results Test Name Value Interpretation Reference Range Facility Colonoscopy Reporton 024 Colonoscopy Report [facility] Medical Records Department [address] [place] [address] Colonoscopy Report MR#: [id number] Acct: [id number] Name: CHRIS HAUSER Rep #: [id number] : 1955 68 From: Loco Walker DO PCP: Dr. Ayush Andino DO Status:REG [facility] Patient Name: Chris Hauser Procedure Date: 07/06/2024 7:13 AM Date of : 1955 Age: 68 Procedure: Colonoscopy Indications: Screening for colorectal malignant neoplasm Providers: Loco Walker DO Referring MD: Ayush Andino Medicines: Monitored Anesthesia Care Patient Profile: This is a 68 year old male. Refer to note in patient chart for documentation of history and physical. Last Colonoscopy: date unknown. Unable to locate last colonoscopy report. Complications: No immediate complications. Procedure: Pre-Anesthesia Assessment: - Prior to the procedure, a History and Physical was performed, and patient medications and allergies were reviewed. The patient is competent. The risks and benefits of the procedure and the sedation options and risks were discussed with the patient. All questions were answered and informed consent was obtained. Patient identification and proposed procedure were verified by the physician. Mental Status Examination: alert and oriented. Prophylactic Antibiotics: The patient does not require prophylactic antibiotics. Prior Anticoagulants: The patient has taken no anticoagulant or antiplatelet agents except for NSAID medication. ASA Grade Assessment: II - A patient with mild systemic disease. After reviewing the risks and benefits, the patient was deemed in satisfactory condition to undergo the procedure. The anesthesia plan was to use monitored anesthesia care (MAC). Immediately prior to administration of medications, the patient was re-assessed for adequacy to receive sedatives. The heart rate, respiratory rate, oxygen saturations, blood pressure, adequacy of pulmonary ventilation, and response to care were monitored throughout the procedure. The physical status of the patient was re-assessed after the procedure. After I obtained informed consent, the scope was passed under direct vision. Throughout the procedure, the patient's blood pressure, pulse, and oxygen saturations were monitored continuously. The colonoscope was introduced through the anus and advanced to the cecum, identified by appendiceal orifice and ileocecal valve. The colonoscopy was performed without difficulty. The patient tolerated the procedure well. The quality of the bowel preparation was adequate. The ileocecal valve, appendiceal orifice, and rectum were photographed. Scope In: 7:25:28 AM Scope Withdrawal Time 0 hours 6 minutes 32 seconds Scope Out: 7:35:28 AM Total Procedure Duration Time 0 hours 10 minutes 0 seconds Findings: The perianal and digital rectal examinations were normal. A few small-mouthed diverticula were found in the recto-sigmoid colon and sigmoid colon. The exam was otherwise without abnormality on direct and retroflexion views. Impression: - Diverticulosis in the recto-sigmoid colon and in the sigmoid colon. - The examination was otherwise normal on direct and retroflexion views. - No specimens collected. Recommendation: - Discharge patient to home. - Resume previous diet. - Continue present medications. - Repeat colonoscopy in 10 years for screening purposes. Procedure Code(s): --- Professional --- G0121, Colorectal cancer screening; colonoscopy on individual not meeting criteria for high risk CPT copyright 2021 [employer]. All rights reserved. The codes documented in this report are preliminary and upon cherry cutter review may be revised to meet current compliance requirements. Loco Walker DO 07/06/2024 7:39:59 AM This report has been signed electronically. Number of Addenda: 0 Note Initiated On: 07/06/2024 7:13 AM 07/06/24 0740 Date Loco Hintonignstaci Signature: Date (if indicated) CC: Dr. Ayush Andino DO; Loco Walker DO Date Dictated: 07/06/24712 Date Transcribed: Academic Records Specialist: RF Signed [facility] MR/POSTOP.ANEon 07-06-2024 MR/POSTOP.[facility] Medical Records Department [address] [place] [address] Anesthesia Postop Eval I 07/06/24743 MR#: [id number] Acct: [id number] Name: CHRIS HAUSER Rep #: [id number] : 1955 68 From: Aman Moore PCP: Dr. Ayush Andino DO Status:REG [facility] Y Race: C Location: [place] [address] Anesthesia: Postop Eval I Current Vital Signs Temperature: 97.7 F Pulse Rate: 74 Blood Pressure: 103/63 Respiratory Rate: 16 Pulse Ox: 97 Oxygen Delivery Method: Room Air Assessment Airway patent: Yes Spontaneous unlabored respirations: Yes Mental status: Asleep nausea: No Vomiting: No Anesthesia Complication: No Fluid Hydration Crystalloid volume administer (ml): 40 Total IV fluid infused: 40 Progress Note Anesthesia document: Postop Eval 1 completed: Yes 07/06/24743 Date Aman Lawrence Signature: Date CC: Signed [facility] [id number] 07-06-2024 MR/POSTOPAN2 [facility] Medical Records Department [address] [place] [address] Anesthesia Postop Eval II 07/06/2421 MR#: [id number] Acct: [id number] Name: CHRIS HAUSER Rep #: [id number] : 1955 68 From: Amilcar Franklin MD PCP: Dr. Ayush Andino, DO Status:DEP [facility] Y Race: C Location: EN Anesthesia Postop Eval I Sum Postop Eval Completion status Anesthesia document: Postop Eval 1 completed: Yes Anesthesia Postop Eval I Summary Anesthesia Postop Eval I Summary: Anesthesia Postop Eval I: Assessment Summary Airway patent Yes 07/06/24 07:44 [email or web address] Spontaneous unlabored Yes 07/06/24 07:44 [email or web address] respirations Mental status Asleep 07/06/24 07:44 [email or web address] nausea No 07/06/24 07:44 [email or web address] Vomiting No 07/06/24 07:44 [email or web address] Anesthesia Postop Eval I: Fluid Summary Crystalloid volume administer 40 07/06/24 07:44 [email or web address] (ml) Colloids volume administered ( ml) Blood Product volume administered (ml) Total IV fluid infused 40 07/06/24 07:44 [email or web address] Anesthesia Postop Eval I: Summary Notes Anesthesia Complication No 07/06/24 07:44 [email or web address] Anesthesia Complication Comment: Post-operative progress note Anesthesia: Postop Eval II Evaluation Mental status: Awake Pain Level: 0 nausea: No Vomiting: No 07/06/24920 Date Amilcar Franklin MD Cosign Signature: Date CC: Signed Normal [facility] Celiac Disease Profileon ENDOMYSIAL IGA Negative Normal Negative [facility] Comment on above: Performed By: #### L 3410.2400 #### [facility] [address] [place], [address] IMMUNOGLOB A QN 35 mg/dL Low 61-[address] [facility] Comment on above: Result Comment: Resu lt confirmed on concentration. Performed By: #### L 3410.2400 #### [facility] [address] [place], [place], [address] tTG IGA <2 Normal 0-[address] [facility] Comment on above: Result Comment: Nega tive 0 - 3 Weak Positive 4 - 10 Positive >10 Tissue Transglutaminase (tTG) has been identified as the endomysial antigen. Studies have demonstr- ated that endomysial IgA antibodies have over 99% specificity for gluten sensitive enteropathy. Performed By: #### L 3410.2400 #### [facility] [address] [place], [place], [address] tTG IGG 3 U/mL Normal 0-[address] [facility] Comment on above: Result Comment: Nega tive 0 - 5 Weak Positive 6 - 9 Positive >9 Performed at: [address] [id number] Swim Coach: Edison Mansfield PhD, Phone: [phone] Performed By: #### L 3410.2400 #### [facility] [address] [place], [place], [address] Gastroenterology Visit Repor [facility] 05-25-2024 Gastroenterology Visit Report [facility] [address] [place] [address] OFFICE VISIT Date of Service: 05/25/24 MR#: [id number] Acct: [id number] Name: CHRIS HAUSER Rep #: [id number] : 1955 Provider: BRENDEN Nuñez Age/Sex: 68/M Location: [facility] Status: Signed Intake Intake Visit Reasons: POSITIVE COLOGUARD Chief Complaint: Positive Cologuard Accompanied by: Allergies shrimp Allergy (Verified 05/25/24 07:42) Other Sulfa (Sulfonamide Antibiotics) Allergy (Verified 05/25/24 07:42) Rash latanoprost Adverse Reaction (Verified 05/25/24 07:42) Other Medications ???Medication ???Instructions ???Recorded ???Confirmed ???Type omega-3 acid ethyl esters 1 gram 2 g PO DAILY 04/22/15 05/25/24 History capsule hydrocodone-acetaminop hen 5-325mg 1 - 2 tab PO Q4H PRN PRN Pain ##20 04/27/15 Rx 5mg-325mg vitamin B complex 1 tab PO QDAY 05/19/24 05/19/24 History Have you fallen in the past year?: No PFSH Medical History Glaucoma suspect Nummular eczema Benign hematuria BPH (benign prostatic hyperplasia) Hip pain Hypertriglyceridemia Elevated PSA Osteoarthritis of hands, bilateral Costal chondritis Fibromyalgia Arthritis Irritable bowel syndrome Hypertension Prediabetes Surgical History H/O removal of cyst Family History Brother Diabetes Sister Diabetes Grandmother Diabetes Grandfather Diabetes Mother High cholesterol Joint pain Father High cholesterol Hypertension Social History Smoking Status: Never smoker alcohol intake: never what type of physical activity do you participate in: bicycling frequency: 3-4 times per week HPI HPI Chief Complaint: Positive Cologuard Details: CHRIS HAUSER, is a 68 M who presents to the office today for establishment with [facility]. Pt has a PMHx elevated PSA, OA, fibromyalgia, IBS and HTN. Here is here today for evaluation after a positive Cologuard test. He tells me his last colonoscopy was about 15 years ago without any abnormalities or polyps. He has recently noticed some increased bloating and increased stool frequency but nothing else. He has always had issues with bloating after eating certain foods like gluten, peanuts and fried food. He has had food allergen testing in the past which was normal. He has never been tested for celiac disease. He denies abdominal pain, n/v, heartburn, constipation, diarrhea or melena. ROS Const Constitutional: No anorexia, fatigue, fever(s), weight change or sleep problems Eyes Eyes: No change in vision ENT ENT: No abnormal hearing, difficulty swallowing, mouth lesions, tongue swelling or throat swelling Resp Respiratory: No cough or shortness of breath Cardio Cardiology: No chest pain at rest, chest pain with exertion, shortness of breath or dyspnea on exertion Gastro GI: Positive for bloating and other (increased stool frequency ); No difficulty swallowing Genitourinary Male: No difficulty urinating or burning urination Musc Musculoskeletal: No joint pain, joint swelling, muscle weakness or decreased muscle mass Skin Skin: No hair loss in leg, yellowing of the eye, itchy eyes, rash, skin ulcer or skin swelling Neuro Neurology: No abnormal hearing, abnormal movements, confusion, unsteady gait/balance or memory loss Psych Psychiatric: No anxiety, No confusion and No memory loss Endo Endocrine: No fatigue or weight change Aller/Imm Allergy/Immunologic: No itchy eyes, throat swelling or tongue swelling Edu/Lymp Hematologic/Lymphatic: No easy bleeding, easy bruising or enlarged lymph nodes Exam Const General: cooperative and comfortable Nutritional Appearance: average body habitus and well nourished HENMT Head: normal to inspection Ears: hearing grossly normal bilaterally Nose: external nose normal Face and sinus: normal facial exam Eyes General: appearance normal, both eyes and all related structures Neck Neck: normal visual inspection Chest Chest palpation inspection: normal inspection of the chest Resp Effort Inspection: normal respiratory effort Cardio Palpation: normal PMI Rate: regular rate Rhythm: regular rhythm GI Inspection: normal to inspection Auscultation: normal bowel sounds Palpation: no hepatosplenomegaly Skin General: no rashes or lesions noted Neuro General: patient alert Extrem General: normal to inspection Psych Affect: normal affect Assessment and Plan Assessment and Plan (1) Abdominal bloating: Status: Acute (2) Positive colorectal cancer screening using Cologuard test: Status: Acute Plan: Pt is a 68 yo male here today for donald (more content not included)... Normal [facility] CBC W/Diff, Automatedon 07-3 Absolute Lymph 2.65 X10 3/uL Normal 0.83-4.[address] [facility] Comment on above: Performed By: #### L 500.4100, L100.0100, L501.9910, L500.4050, L501.9985 #### [facility] [address] [place], [place], [id number] Absolute Neut 2.9 X10 3/uL Normal 2.0-7.[address] [facility] Comment on above: Performed By: #### L 500.4100, L100.0100, L501.9910, L500.4050, L501.9985 #### [facility] [address] [place], [address] Basophils/100 WBC (Bld) 0.5 % Normal 0-[address] [facility] Comment on above: Performed By: #### L 500.4100, L100.0100, L501.9910, L500.4050, L501.9985 #### [facility] [address] [place], [address] Eosinophils/100 WBC (Bld) 3.0 % Normal 0-[address] [facility] Comment on above: Performed By: #### L 500.4100, L100.0100, L501.9910, L500.4050, L501.9985 #### [facility] [address] [place], [address] Erythrocyte distribution width (RBC) [Ratio] 13.2 % Normal 11.6-14.[address] [facility] Comment on above: Performed By: #### L 500.4100, L100.0100, L501.9910, L500.4050, L501.9985 #### [facility] [address] [place], [address] Hematocrit (Bld) [Volume fraction] 45.8 % Normal 40-[address] [facility] Comment on above: Performed By: #### L 500.4100, L100.0100, L501.9910, L500.4050, L501.9985 #### [facility] [address] [place], [address] Hemoglobin (Bld) [Mass/Vol] 15.2 g/dL Normal 13.0-16.[address] [facility] Comment on above: Performed By: #### L 500.4100, L100.0100, L501.9910, L500.4050, L501.9985 #### [facility] [address] [place], [address] IG% 0.200 Normal 0.0-0.[address] [facility] Comment on above: Result Comment: IG% - Immature Granulocytes (promyelocytes, myelocytes and metamyelocytes) > 1% indicates that a LEFT SHIFT is Present. Performed By: #### L 500.4100, L100.0100, L501.9910, L500.4050, L501.9985 #### [facility] [address] [place], [address] Lymphocytes/100 WBC (Bld) 41.4 % High 19-[address] [facility] Comment on above: Performed By: #### L 500.4100, L100.0100, L501.9910, L500.4050, L501.9985 #### [facility] [address] [place], [address] MCH (RBC) [Entitic mass] 27.5 pg Normal 27.0-32.[address] [facility] Comment on above: Performed By: #### L 500.4100, L100.0100, L501.9910, L500.4050, L501.9985 #### [facility] [address] [place], [address] MCHC (RBC) [Mass/Vol] 33.2 g/dL Normal 32-36 [facility] Comment on above: Performed By: #### L 500.4100, L100.0100, L501.9910, L500.4050, L501.9985 #### [facility] [address] [place], [address] MCV (RBC) [Entitic vol] 83.0 fL Normal 80-[address] [facility] Comment on above: Performed By: #### L 500.4100, L100.0100, L501.9910, L500.4050, L501.9985 #### [facility] [address] [place], [address] Monocytes/100 WBC (Bld) 9.8 % Normal 0-[address] [facility] Comment on above: Performed By: #### L 500.4100, L100.0100, L501.9910, L500.4050, L501.9985 #### [facility] [address] [place], [address] Neutrophils/100 WBC (Bld) 45.1 % Low 47-[address] [facility] Comment on above: Performed By: #### L 500.4100, L100.0100, L501.9910, L500.4050, L501.9985 #### [facility] [address] [place], [address] Nucleated RBC (Bld) [#/Vol] 0 10*3/uL Normal 0-[address] [facility] Comment on above: Performed By: #### L 500.4100, L100.0100, L501.9910, L500.4050, L501.9985 #### [facility] [address] [place], [address] Platelet mean volume (Bld) [Entitic vol] 10.6 fL Normal 6.2-12.[address] [facility] Comment on above: Performed By: #### L 500.4100, L100.0100, L501.9910, L500.4050, L501.9985 #### [facility] [address] [place], [address] Platelets (Bld) [#/Vol] 195 10*3/uL Normal 150-[address] [facility] Comment on above: Performed By: #### L 500.4100, L100.0100, L501.9910, L500.4050, L501.9985 #### [facility] [address] [place], [address] RBC (Bld) [#/Vol] 5.52 10*6/uL Normal 4.6-6.2 [facility] Comment on above: Performed By: #### L 500.4100, L100.0100, L501.9910, L500.4050, L501.9985 #### [facility] [address] [place], [address] RDW SD 39.6 fl Normal 35.1-43.[address] [facility] Comment on above: Performed By: #### L 500.4100, L100.0100, L501.9910, L500.4050, L501.9985 #### [facility] [address] [place], [address] WBC (Bld) [#/Vol] 6.4 10*3/uL Normal 4.4-11.0 [facility] Comment on above: Performed By: #### L 500.4100, L100.0100, L501.9910, L500.4050, L501.9985 #### [facility] [address] [place], [address] Comprehensive Metabolic Prof [facility] 03-11-2024 Albumin [Mass/Vol] 3.9 g/dL Normal 3.2-5.0 [facility] Comment on above: Performed By: #### L 500.4100, L100.0100, L501.9910, L500.4050, L501.9985 #### [facility] [address] [place], [address] Albumin/Globulin [Mass ratio] 1.1 {ratio} Normal 0.9-2.[address] [facility] Comment on above: Performed By: #### L 500.4100, L100.0100, L501.9910, L500.4050, L501.9985 #### [facility] [address] [place], [address] ALK P 43 U/L Low 45-[address] [facility] Comment on above: Performed By: #### L 500.4100, L100.0100, L501.9910, L500.4050, L501.9985 #### [facility] [address] [place], [address] ALT [Catalytic activity/Vol] 23 U/L Normal 16-[address] [facility] Comment on above: Performed By: #### L 500.4100, L100.0100, L501.9910, L500.4050, L501.9985 #### [facility] [address] [place], [address] AST [Catalytic activity/Vol] 18 U/L Normal 15-[address] [facility] Comment on above: Performed By: #### L 500.4100, L100.0100, L501.9910, L500.4050, L501.9985 #### [facility] [address] [place], [address] Bilirubin [Mass/Vol] 0.50 mg/dL Normal 0.20-1.00 [facility] Comment on above: Result Comment: For patients on eltrombopag therapy, use of Dimension [place] TBIL is not recommended. Performed By: #### L 500.4100, L100.0100, L501.9910, L500.4050, L501.9985 #### [facility] [address] [place], [address] BUN/CRE 10.2 RATIO Normal 10-[address] [facility] Comment on above: Performed By: #### L 500.4100, L100.0100, L501.9910, L500.4050, L501.9985 #### [facility] [address] [place], [address] CA,Total 9.2 mg/dL Normal 8.5-10.[address] [facility] Comment on above: Performed By: #### L 500.4100, L100.0100, L501.9910, L500.4050, L501.9985 #### [facility] [address] [place], [address] Chloride [Moles/Vol] 106 mmol/L Normal 98-107 [facility] Comment on above: Performed By: #### L 500.4100, L100.0100, L501.9910, L500.4050, L501.9985 #### [facility] [address] [place], [address] CO2 [Moles/Vol] 29.0 mmol/L Normal 21.0-32.[address] [facility] Comment on above: Performed By: #### L 500.4100, L100.0100, L501.9910, L500.4050, L501.9985 #### [facility] [address] [place], [address] Creatinine [Mass/Vol] 0.98 mg/dL Normal 0.70-1.30 [facility] Comment on above: Result Comment: The validity of the calculated GFR GFRAA in patients over 70 years has not been determined. Clinical correlation is essential. Performed By: #### L 500.4100, L100.0100, L501.9910, L500.4050, L501.9985 #### [facility] [address] [place], [address] EST GFR - AA 98 mL/min Normal >[address] [facility] Comment on above: Result Comment: Afri can [place] GFR Calc Performed By: #### L 500.4100, L100.0100, L501.9910, L500.4050, L501.9985 #### [facility] [address] [place], [address] GAP 5 Normal 5-[address] [facility] Comment on above: Performed By: #### L 500.4100, L100.0100, L501.9910, L500.4050, L501.9985 #### [facility] [address] [place], [address] GFR/1.73 sq M.predicted among non-blacks MDRD (S/P/Bld) [Vol rate/Area] 81 mL/min/{1.73_m2} Normal >[address] [facility] Comment on above: Result Comment: Non- GFR Calc Performed By: #### L 500.4100, L100.0100, L501.9910, L500.4050, L501.9985 #### [facility] [address] [place], [address] Globulin (S) [Mass/Vol] 3.4 g/dL Normal 2.2-4.[address] [facility] Comment on above: Performed By: #### L 500.4100, L100.0100, L501.9910, L500.4050, L501.9985 #### [facility] [address] [place], [address] Glucose [Mass/Vol] 97 mg/dL Normal 74-106 [facility] Comment on above: Performed By: #### L 500.4100, L100.0100, L501.9910, L500.4050, L501.9985 #### [facility] [address] [place], [address] Potassium [Moles/Vol] 3.7 mmol/L Normal 3.5-5.1 [facility] Comment on above: Performed By: #### L 500.4100, L100.0100, L501.9910, L500.4050, L501.9985 #### [facility] [address] [place], [address] Sodium [Moles/Vol] 140 mmol/L Normal 136-145 [facility] Comment on above: Performed By: #### L 500.4100, L100.0100, L501.9910, L500.4050, L501.9985 #### [facility] [address] [place], [address] T PROT 7.3 g/dL Normal 6.4-8.[address] [facility] Comment on above: Performed By: #### L 500.4100, L100.0100, L501.9910, L500.4050, L501.9985 #### [facility] [address] [place], [address] Urea nitrogen [Mass/Vol] 10 mg/dL Normal 7-[address] [facility] Comment on above: Performed By: #### L 500.4100, L100.0100, L501.9910, L500.4050, L501.9985 #### [facility] [address] [place], [address] Hemoglobin A1con 03-11-2024 HbA1c (Bld) [Mass fraction] 6.0 % High 3.8-5.[address] [facility] Comment on above: Result Comment: Norm al < 5.7 % Prediabetic 5.7 - 6.4 % Diabetic >or= 6.5 % Please note range changes. Performed By: #### L 500.4100, L100.0100, L501.9910, L500.4050, L501.9985 #### [facility] [address] [place], [address] Lipid Profileon 03-11-2024 Cholesterol [Mass/Vol] 209 mg/dL High 200 [facility] Comment on above: Result Comment: <200 mg/dL Desirable 200-240 mg/dL Borderline >240 mg/dL High Risk Performed By: #### L 500.4100, L100.0100, L501.9910, L500.4050, L501.9985 #### [facility] [address] [place], [address] Cholesterol in HDL [Mass/Vol] 45 mg/dL Normal [facility] Comment on above: Result Comment: The drugs N-Acetylcysteine and Metamizole may falsely depress this assay. Reference Range HDL <40 mg/dL Low HDL Cholesterol HDL >or= 60 mg/dL High HDL Cholesterol Performed By: #### L 500.4100, L100.0100, L501.9910, L500.4050, L501.9985 #### [facility] [address] [place], [address] Cholesterol in LDL [Mass/Vol] 129 mg/dL Normal 0-[address] [facility] Comment on above: Performed By: #### L 500.4100, L100.0100, L501.9910, L500.4050, L501.9985 #### [facility] [address] [place], [address] Cholesterol in VLDL [Mass/Vol] 35 mg/dL Normal 5-[address] [facility] Comment on above: Performed By: #### L 500.4100, L100.0100, L501.9910, L500.4050, L501.9985 #### [facility] [address] [place], [address] Triglyceride [Mass/Vol] 175 mg/dL Normal [facility] Comment on above: Result Comment: The drugs N-Acetylcysteine and Metamizole may falsely depress this assay. Serum Triglycerides Reference Interval Normal <150 mg/dL Borderline high 150 - 199 mg/dL High 200 - 499 mg/dL Very High > or = 500 mg/dL Performed By: #### L 500.4100, L100.0100, L501.9910, L500.4050, L501.9985 #### [facility] [address] [place], [address] PSA,Total - Annual Screenon 03-11-2024 PSA,TOT SCREEN 4.69 ng/mL High 0.00-4.[address] [facility] Comment on above: Result Comment: This test was performed using the TPSA assay method for the Dimension chemistry system. Values obtained with different assay methods cannot be used interchangably. When changing PSA assays in the course of monitoring a patient, additional sequential testing should be carried out to confirm baseline values. Performed By: #### L 500.4100, L100.0100, L501.9910, L500.4050, L501.9985 #### [facility] [place], [address] Absolute lymphocyte countOrd ered By: Dr. Andino on 12-06-2022 Lymphocytes Auto (Unsp spec) [#/Vol] 2.42 10*3/uL 0.83-4.[address] [facility] Basophil percentageOrdered B y: Dr. Andino on 12-06-2022 Basophils/100 WBC (Bld) 0.3 % 0-[address] [facility] Bilirubin [Mass/Vol] 0.50 mg/dL 0.20-1.00 [facility] Comment on above: For patients on eltr ombopag therapy, use of Dimension [place] TBIL is not recommended. Chloride [Moles/Vol] 104 mmol/L 98-107 [facility] Cholesterol [Mass/Vol] 199 mg/dL <200 [facility] Comment on above: <200 mg/dL Desirable 200-240 mg/dL Borderline >240 mg/dL High Risk Eosinophils/100 WBC (Bld) 3.0 % 0-[address] [facility] Glucose [Mass/Vol] 109 mg/dL 74-106 [facility] Comment on above: Fasting Glucose resu lt from 100 to 125 mg/dL suggests IMPAIRED HOMEOSTASIS per A.D.A. criteria. Neutrophils (Bld) [#/Vol] 2.8 10*3/uL 2.0-7.[address] [facility] Neutrophils/100 WBC (Bld) 46.2 % 47-[address] [facility] Potassium [Moles/Vol] 3.7 mmol/L 3.5-5.1 [facility] Protein [Mass/Vol] 6.9 g/dL 6.4-8.2 [facility] Sodium [Moles/Vol] 137 mmol/L 136-145 [facility] Triglyceride [Mass/Vol] 173 mg/dL <[address] [facility] Comment on above: The drugs N-Acetylcy steine and Metamizole may falsely depress this assay.Serum Triglycerides Reference Interval Normal <150 mg/dL Borderline high 150 - 199 mg/dL High 200 - 499 mg/dL Very High > or = 500 mg/dL WBC (Bld) [#/Vol] 6.0 10*3/uL 4.4-11.0 [facility] Blood erythrocytes count (nu mber/volume)Ordered By: Dr. Andino on 12-06-2022 RBC (Bld) [#/Vol] 5.47 10*6/uL 4.6-6.2 [facility] Blood hemoglobin measurement (mass/volume)Ordered By: Dr. Andino on 12-06-2022 Hemoglobin (Bld) [Mass/Vol] 15.2 g/dL 13.0-16.[address] [facility] Blood lymphocytes/100 leukoc ytesOrdered By: Dr. Andino on 12-06-2022 Lymphocytes/100 WBC (Bld) 40.3 % 19-[address] [facility] Blood monocytes/100 leukocyt esOrdered By: Dr. Andino on 12-06-2022 Monocytes/100 WBC (Bld) 10.0 % 0-[address] [facility] Blood platelet mean volumeOr dered By: Dr. Andino on 12-06-2022 Platelet mean volume (Bld) [Entitic vol] 10.6 fL 6.2-12.[address] [facility] Determination of erythrocyte mean corpuscular volume (MCV)Ordered By: Dr. Andino on 12-06-2022 MCV (RBC) [Entitic vol] 86.8 fL 80-[address] [facility] Erythrocyte sedimentation ra teOrdered By: Dr. Andino on 12-06-2022 ESR (Bld) [Velocity] mm/h 0-20 [facility] Hematocrit Auto (Bld) [Volum e fraction]Ordered By: Dr. Andino on 12-06-2022 Hematocrit (Bld) [Volume fraction] 47.5 % 40-[address] [facility] - Chemistry and C hemistry - challengeOrdered By: Dr. Andino on 12-06-2022 ALP [Catalytic activity/Vol] 37 U/L 45-[address] [facility] ALT [Catalytic activity/Vol] 39 U/L 16-[address] [facility] CO2 [Moles/Vol] 30.0 mmol/L 21.0-32.[address] [facility] Globulin (S) [Mass/Vol] 3.0 g/dL 2.2-4.[address] [facility] Urea nitrogen/Creatinine [Mass ratio] 14.4 mg/mg 10-[address] [facility] - Hematology and Cell countsOrdered By: Dr. Andino on 12-06-2022 Erythrocyte distribution width (RBC) [Entitic vol] 41.1 fL 35.1-43.[address] [facility] Erythrocyte distribution width (RBC) [Ratio] 13.1 % 11.6-14.[address] [facility] Immature granulocytes/100 WBC (Bld) 0.200 % 0.0-0.[address] [facility] Comment on above: IG% - Immature Granu locytes (promyelocytes, myelocytes and metamyelocytes) > 1% indicates that a LEFT SHIFT is Present. MCH (RBC) [Entitic mass] 27.8 pg 27.0-32.[address] [facility] Nucleated RBC/100 WBC (Bld) [Ratio] 0 % 0-[address] [facility] MCHC Auto (RBC) [Mass/Vol]Or dered By: Dr. Andino on 12-06-2022 MCHC (RBC) [Mass/Vol] 32.0 g/dL 32-36 [facility] No Panel InformationOrdered By: Dr. Andino on 12-06-2022 Estimated GFR (MDRD) Amer 119 mL/min >[address] [facility] Comment on above: GFR Calc Estimated GFR (MDRD) Non-Af Amer 99 mL/min >[address] [facility] Comment on above: Non- GFR Calc Prostate Specific Antigen Screen 3.97 ng/mL 0.00-4.[address] [facility] Comment on above: This test was perfor med using the TPSA assay method [facility] the[facility]. Values obtained with differentassay methods cannot be used interchangably.When changing PSA assays in the course of monitoring apatient, additional sequential testing should be carriedout to confirm baseline values. Platelets bldOrdered By: Dr. Andino on 12-06-2022 Platelets (Bld) [#/Vol] 207 10*3/uL 150-[address] [facility] Serum or plasma albumin phillip urement (mass/volume)Ordered By: Dr. Andino on 12-06-2022 Albumin [Mass/Vol] 3.9 g/dL 3.2-5.0 [facility] Serum or plasma albumin/glob ulin mass ratioOrdered By: Dr. Andino on 12-06-2022 Albumin/Globulin [Mass ratio] 1.3 {ratio} 0.9-2.[address] [facility] Serum or plasma calcium phillip urement (mass/volume)Ordered By: Dr. Andino on 12-06-2022 Calcium [Mass/Vol] 9.3 mg/dL 8.5-10.1 [facility] Serum or plasma cholesterol in HDL measurement (mass/volume)Ordered By: Dr. Andino on 12-06-2022 Cholesterol in HDL [Mass/Vol] 45 mg/dL >[address] [facility] Comment on above: The drugs N-Acetylcy steine and Metamizole may falsely depress this assay. Reference Range HDL <40 mg/dL Low HDL Cholesterol HDL >or= 60 mg/dL High HDL Cholesterol Serum or plasma cholesterol in VLDL measurement (mass/volume)Ordered By: Dr. Andino on 12-06-2022 Cholesterol in VLDL [Mass/Vol] 35 mg/dL 5-[address] [facility] Serum or plasma creatinine m easurement (mass/volume)Ordered By: Dr. Andino on 12-06-2022 Creatinine [Mass/Vol] 0.83 mg/dL 0.70-1.30 [facility] Comment on above: The validity of the calculated GFR & GFRAA in patients over 70 years has not been determined. Clinical correlation is essential. Serum or plasma low density lipoprotein (LDL) cholesterol measurement (mass/volume)Ordered By: Dr. Andino on 12-06-2022 Cholesterol in LDL [Mass/Vol] 119 mg/dL 0-[address] [facility] Serum or plasma urea nitroge n measurement (mass/volume)Ordered By: Dr. Andino on 12-06-2022 Urea nitrogen [Mass/Vol] 12 mg/dL 7-[address] [facility] Thin prep Papanicolaou smear with manual screeningOrdered By: Dr. Andino on 12-06-2022 Thin prep Papanicolaou smear with manual screening 21 U/L 15-[address] [facility] Thin prep Papanicolaou smear with manual screening 3 5-[address] [facility] Whole blood hemoglobin A1c/t otal hemoglobin ratio (mass fraction)Ordered By: Dr. Andino on 12-06-2022 HbA1c (Bld) [Mass fraction] 5.7 % 3.8-5.[address] [facility] Comment on above: Normal < 5.7 % Predi abetic 5.7 - 6.4 % Diabetic >or= 6.5 % Please note range changes. Absolute lymphocyte counton 11-23-2021 Lymphocytes Auto (Unsp spec) [#/Vol] 2.57 10*3/uL 0.83-4.[address] [facility] Work Phone: Basophil percentageon 2021 Basophils/100 WBC (Bld) 0.4 % 0-[address] [facility] Work Phone: Bilirubin [Mass/Vol] 0.40 mg/dL 0.20-1.00 [facility] Work Phone: Comment on above: For patients on eltr ombopag therapy, use of Dimension [place] TBIL is not recommended. Chloride [Moles/Vol] 106 mmol/L 98-107 [facility] Work Phone: Cholesterol [Mass/Vol] 214 mg/dL <200 [facility] Work Phone: Comment on above: <200 mg/dL Desirable 200-240 mg/dL Borderline >240 mg/dL High Risk Eosinophils/100 WBC (Bld) 2.2 % 0-[address] [facility] Work Phone: Glucose [Mass/Vol] 104 mg/dL 74-106 [facility] Work Phone: Comment on above: Fasting Glucose resu lt from 100 to 125 mg/dL suggests IMPAIRED HOMEOSTASIS per A.D.A. criteria. Neutrophils (Bld) [#/Vol] 3.5 10*3/uL 2.0-7.[address] [facility] Work Phone: Neutrophils/100 WBC (Bld) 51.1 % 47-[address] [facility] Work Phone: Potassium [Moles/Vol] 3.9 mmol/L 3.5-5.1 [facility] Work Phone: Protein [Mass/Vol] 7.3 g/dL 6.4-8.2 [facility] Work Phone: Sodium [Moles/Vol] 141 mmol/L 136-145 [facility] Work Phone: Testosterone [Mass/Vol] 484.69 ng/dL [facility] Work Phone: Comment on above: CENTRAL 90% REFERENC E RANGES MALE AGE <50 197.44 - 669.58 ng/dL MALE AGE > or = 50 187.72 - 684.19 ng/dL FEMALE AGE <50 8.38 - 35.01 ng/dL FEMALE AGE > or = 50 <7.00 - 35.92 ng/dL Effective as of 03/07/21 Triglyceride [Mass/Vol] 173 mg/dL [facility] Work Phone: Comment on above: The drugs N-Acetylcy steine and Metamizole may falsely depress this assay.Serum Triglycerides Reference Interval Normal <150 mg/dL Borderline high 150 - 199 mg/dL High 200 - 499 mg/dL Very High > or = 500 mg/dL WBC (Bld) [#/Vol] 6.9 10*3/uL 4.4-11.0 [facility] Work Phone: Blood erythrocytes count (nu mber/volume)on 11-23-2021 RBC (Bld) [#/Vol] 5.53 10*6/uL 4.6-6.2 [facility] Work Phone: Blood hemoglobin measurement (mass/volume)on 11-23-2021 Hemoglobin (Bld) [Mass/Vol] 15.5 g/dL 13.0-16.[address] [facility] Work Phone: Blood lymphocytes/100 leukoc yteson 11-23-2021 Lymphocytes/100 WBC (Bld) 37.2 % 19-[address] [facility] Work Phone: Blood monocytes/100 leukocyt eson 11-23-2021 Monocytes/100 WBC (Bld) 8.8 % 0-[address] [facility] Work Phone: Blood platelet mean volumeon 11-23-2021 Platelet mean volume (Bld) [Entitic vol] 10.3 fL 6.2-12.[address] [facility] Work Phone: Determination of erythrocyte mean corpuscular volume (MCV)on 11-23-2021 MCV (RBC) [Entitic vol] 85.0 fL 80-[address] [facility] Work Phone: Hematocrit Auto (Bld) [Volum e fraction]on 11-23-2021 Hematocrit (Bld) [Volume fraction] 47.0 % 40-[address] [facility] Work Phone: Laboratory - Chemistry and C hemistry - challengeon 11-23-2021 ALP [Catalytic activity/Vol] 42 U/L 45-[address] [facility] Work Phone: ALT [Catalytic activity/Vol] 39 U/L 16-[address] [facility] Work Phone: CO2 [Moles/Vol] 32.0 mmol/L 21.0-32.[address] [facility] Work Phone: Globulin (S) [Mass/Vol] 3.2 g/dL 2.2-4.[address] [facility] Work Phone: Urea nitrogen/Creatinine [Mass ratio] 13.5 mg/mg 10-[address] [facility] Work Phone: Laboratory - Hematology and Cell countson 11-23-2021 Erythrocyte distribution width (RBC) [Entitic vol] 38.7 fL 35.1-43.[address] [facility] Work Phone: Erythrocyte distribution width (RBC) [Ratio] 12.5 % 11.6-14.[address] [facility] Work Phone: Immature granulocytes/100 WBC (Bld) 0.300 % 0.0-0.[address] [facility] Work Phone: Comment on above: IG% - Immature Granu locytes (promyelocytes, myelocytes and metamyelocytes) > 1% indicates that a LEFT SHIFT is Present. MCH (RBC) [Entitic mass] 28.0 pg 27.0-32.[address] [facility] Work Phone: Nucleated RBC/100 WBC (Bld) [Ratio] 0 % 0-[address] [facility] Work Phone: MCHC Auto (RBC) [Mass/Vol]on 11-23-2021 MCHC (RBC) [Mass/Vol] 33.0 g/dL 32-36 [facility] Work Phone: No Panel Informationon 11-23 Estimated GFR (MDRD) Amer 111 mL/min >[address] [facility] Work Phone: Comment on above: GFR Calc Estimated GFR (MDRD) Non-Af Amer 92 mL/min >[address] [facility] Work Phone: Comment on above: Non- GFR Calc Prostate Specific Antigen Screen 5.35 ng/mL 0.00-4.[address] [facility] Work Phone: Comment on above: This test was perfor med using the TPSA assay method for the[facility] system. Values obtained with differentassay methods cannot be used interchangably.When changing PSA assays in the course of monitoring apatient, additional sequential testing should be carriedout to confirm baseline values. Thyroid Stimulating Hormone (TSH) 0.71 uIU/mL 0.358-3.[address] [facility] Work Phone: Platelets bldon 11-23-2021 Platelets (Bld) [#/Vol] 206 10*3/uL 150-[address] [facility] Work Phone: Serum or plasma albumin phillip urement (mass/volume)on 11-23-2021 Albumin [Mass/Vol] 4.1 g/dL 3.2-5.0 [facility] Work Phone: Serum or plasma albumin/glob ulin mass ratioon 11-23-2021 Albumin/Globulin [Mass ratio] 1.3 {ratio} 0.9-2.[address] [facility] Work Phone: Serum or plasma calcium phillip urement (mass/volume)on 11-23-2021 Calcium [Mass/Vol] 9.1 mg/dL 8.5-10.1 [facility] Work Phone: Serum or plasma cholesterol in HDL measurement (mass/volume)on 11-23-2021 Cholesterol in HDL [Mass/Vol] 47 mg/dL [facility] Work Phone: Comment on above: The drugs N-Acetylcy steine and Metamizole may falsely depress this assay. Reference Range HDL <40 mg/dL Low HDL Cholesterol HDL >or= 60 mg/dL High HDL Cholesterol Serum or plasma cholesterol in VLDL measurement (mass/volume)on 11-23-2021 Cholesterol in VLDL [Mass/Vol] 35 mg/dL 5-[address] [facility] Work Phone: Serum or plasma creatinine m easurement (mass/volume)on 11-23-2021 Creatinine [Mass/Vol] 0.89 mg/dL 0.70-1.30 [facility] Work Phone: Comment on above: The validity of the calculated GFR & GFRAA in patients over 70 years has not been determined. Clinical correlation is essential. Serum or plasma low density lipoprotein (LDL) cholesterol measurement (mass/volume)on 11-23-2021 Cholesterol in LDL [Mass/Vol] 132 mg/dL 0-[address] [facility] Work Phone: Serum or plasma testosterone free measurement (mass/volume)on 11-23-2021 Testosterone Free [Mass/Vol] 6.8 pg/mL [facility] Work Phone: Comment on above: Performed at: [address] [id number] Director: José Miguel Ruelas MD, Phone: [phone] Serum or plasma urea nitroge n measurement (mass/volume)on 11-23-2021 Urea nitrogen [Mass/Vol] 12 mg/dL 7-[address] [facility] Work Phone: Thin prep Papanicolaou smear with manual screeningon 11-23-2021 Thin prep Papanicolaou smear with manual screening 17 U/L 15-[address] [facility] Work Phone: Thin prep Papanicolaou smear with manual screening 3 5-[address] [facility] Work Phone: Whole blood hemoglobin A1c/t otal hemoglobin ratio (mass fraction)on 11-23-2021 HbA1c (Bld) [Mass fraction] 5.8 % 3.8-5.[address] [facility] Work Phone: Comment on above: Normal < 5.7 % Predi abetic 5.7 - 6.4 % Diabetic >or= 6.5 % Please note range changes. Encounters Encounter Date Encounter Type Care Provider Facility Start: 11-12-2024 End: 11-12-2024 Non-patient / Non-visit Dr. Jeff Mead MD -[facility] Work Phone: Start: 11-12-2024 End: 11-12-[address] Ayush Andino DO Work Phone: [facility] Work Phone: Start: 11-12-2024 End: 11-12-[address] Ayush Andino DO -Pulmonary Services/Neurology Work Phone: Start: 11-12-2024 End: 11-12-2024 ambulatory Ayush Andino Facility:[facility] Start: 07-06-2024 End: 07-06-2024 ambulatory Loco Walker Facility:[facility] Start: 06-16-2024 End: 06-16-2024 ambulatory Evelyn Frances Facility:[facility] Start: 05-25-2024 End: 05-25-2024 ambulatory Evelyn Frances Facility:[facility] Start: 03-11-2024 End: 03-11-2024 ambulatory [facility] Facility:[facility] Start: 12-06-2022 End: 12-06-[address] [facility] Work Phone: Start: 12-06-2022 End: 12-06-2022 Patient encounter procedure [facility] Start: 11-23-2021 End: 11-23-2021 Patient encounter procedure [facility] Payers Date Payer Category Payer Medicare [id number] 2024 Self-pay [id number] 2024 Unknown [id number] 2015 Unknown [id number] Unknown [id number] 2.16.8 [id number] Unknown [id number] 2.16.8 [id number] Unknown [id number] 2.16.8 [id number] Unknown [id number] 2.16.8 [id number] Unknown [id number] 2.16.8 [id number] Unknown [id number] 2.16.8 [id number] Unknown [id number] 2.16.8 [id number] Social History Date Type Detail Facility Start: 04-22-[address] [facility] Start: 1955 Sex Assigned At Male [facility] Start: 07-02-[address] [facility] (finding[facility] Start: 11-17-2024 Sex Male (finding) [facility] Clinical Note 07-06-2024 Note Date & Type Note Facility 07-06-2024 Note [facility] Medical Records Department [address] [place] [address] History Physical Exam 07/06/24 0646 MR#: [id number] Acct: [id number] Name: CHRIS HAUSER Rep #: [id number] : 1955 68 From: Loco Friend DO PCP: Dr. Ayush Andino, DO Status:[facility] Location: [place] [address] History and Physical Date of Admission: 07/06/24 Chief Complaint: Positive Cologuard Details: CHRIS HAUSER, is a 68 M who presents to the office today for establishment with [facility]. Pt has a PMHx elevated PSA, OA, fibromyalgia, IBS and HTN. Here is here today for evaluation after a positive Cologuard test. He tells me his last colonoscopy was about 15 years ago without any abnormalities or polyps. He has recently noticed some increased bloating and increased stool frequency but nothing else. He has always had issues with bloating after eating certain foods like gluten, peanuts and fried food. He has had food allergen testing in the past which was normal. He has never been tested for celiac disease. He denies abdominal pain, n/v, heartburn, constipation, diarrhea or melena. ROS Const Constitutional: No anorexia, fatigue, fever(s), weight change or sleep problems Eyes Eyes: No change in vision ENT ENT: No abnormal hearing, difficulty swallowing, mouth lesions, tongue swelling or throat swelling Resp Respiratory: No cough or shortness of breath Cardio Cardiology: No chest pain at rest, chest pain with exertion, shortness of breath or dyspnea on exertion Gastro GI: Positive for bloating and other (increased stool frequency ); No difficulty swallowing Genitourinary Male: No difficulty urinating or burning urination Musc Musculoskeletal: No joint pain, joint swelling, muscle weakness or decreased muscle mass Skin Skin: No hair loss in leg, yellowing of the eye, itchy eyes, rash, skin ulcer or skin swelling Neuro Neurology: No abnormal hearing, abnormal movements, confusion, unsteady gait/balance or memory loss Psych Psychiatric: No anxiety, No confusion and No memory loss Endo Endocrine: No fatigue or weight change Aller/Imm Allergy/Immunologic: No itchy eyes, throat swelling or tongue swelling Edu/Lymp Hematologic/Lymphatic: No easy bleeding, easy bruising or enlarged lymph nodes Exam Const General: cooperative and comfortable Nutritional Appearance: average body habitus and well nourished HENWY Head: normal to inspection Ears: hearing grossly normal bilaterally Nose: external nose normal Face and sinus: normal facial exam Eyes General: appearance normal, both eyes and all related structures Neck Neck: normal visual inspection Chest Chest palpation inspection: normal inspection of the chest Resp Effort Inspection: normal respiratory effort Cardio Palpation: normal PMI Rate: regular rate Rhythm: regular rhythm GI Inspection: normal to inspection Auscultation: normal bowel sounds Palpation: no hepatosplenomegaly Skin General: no rashes or lesions noted Neuro General: patient alert Extrem General: normal to inspection Psych Affect: normal affect Assessment and Plan Assessment and Plan (1) Abdominal bloating: Status: Acute (2) Positive colorectal cancer screening using Cologuard test: Status: Acute Plan: Pt is a 68 yo male here today for evaluation after having a positive Cologuard test. His last colonoscopy was 15 years ago without abnormalities. He has noticed some increased bloating and stool frequency but denies other abdominal symptoms. He mentioned having some issues with bloating when he eats foods with gluten. I recommended we test for Celiac since he has never had this done before. He declines food allergy testing. I will order blood testing for Celiac disease. He should also undergo colonoscopy for his positive colorectal cancer screening. He is agreeable to this and will be scheduled. All questions answered. -Colonoscopy -Celiac disease blood work -f/u as needed pending colonposcy and blood work results Orders: Orders Celiac Disease Profile Today R14.0 - Abdominal distension (gaseous) I have examined the patient and the H P has been reviewed. There are no clinical changes since date of exam. 07/06/24 0646 Cosigner Signature (if applicable): CC: Dr. Ayush Andino, ; Loco Friend, Signed [facility] Evaluation note Note Date & Type Note Facility Evaluation note No assessment information availa ble [facility] Work Phone: Reason for referral (narrative) Note Date & Type Note Facility Reason for referral (narrative) No reason for referral information available [facility] Work Phone: Advance Directives No Advanced Directives Records Found Advance Directive Response Recorded Date/ Time Advance Directives Yes April 1:24pm Living Will Yes April 22, 2015 1:24pm Power of Reprographics Technician Yes April 1:24pm Advance Directive Response Recorded Date/ Time Advance Directives Yes April 1:24pm Chief Complaint and Reason for Visit Chief Complaint Admit Date PALPITATIONS November 12, 2024 6:40 am PALPS November 12, 2024 6:59 am Family History No Family History Records Found Relationship Condition Age at Onset Recorded Date/T elsa brother Diabetes mellitus Unknown sister Diabetes mellitus Unknown grandmother Diabetes mellitus Unknown grandfather Diabetes mellitus Unknown mother High blood cholesterol Unknown Arthralgia Unknown father High blood cholesterol Unknown Hypertension Unknown Summary Purpose Additional Source Comments Goals (unrecognized section and content) Goals may be documented in a n alternate sectionGoals may be documented in an alternate sectionGoals may be documented in an alternate section Care Teams (unrecognized sec tion and content) Team Status: Active Member Role Status Dates Dr. Ayush Andino DO Family Provider Active Dr. Ayush Andino DO Primary Care Provider Active Team Status: Inactive Member Role Status Dates Dr. Ayush Andino DO Primary Care Prov ider, Attending Provider, Referring Provider Active Team Status: Active Member Role Status Dates Dr. Ayush Andino DO Primary Care Provider Active Team Status: Inactive Member Role Status Dates Dr. Ayush Andino DO Primary Care Provider Active Start: November 12, 2024 End: November 12, 2024 Dr. Ayush Andino DO Attending Provider Active Start: November 12, 2024 End: November 12, 2024 Dr. Ayush Andino DO Referring Provider Active Start: November 12, 2024 End: November 12, 2024 Team Status: Active Member Role Status Dates Dr. Ayush Andino DO Primary Care Provider Active Start: November 12, 2024 End: November 12, 2024 Dr. Ayush Andino DO Referring Provider Active Start: November 12, 2024 End: November 12, 2024 Dr. Jeff Mead MD Attending Provider Active S tart: November 12, 2024 End: November 12, 2024 (unrecognized sect ion and content) No Status Records Found INFORMATION SOURCE (unrecogn ized section and content) DATE CREATED AUTHOR 11/19/2024 [facility] FOR RECORDS PERTAINING TO PATIENTS WHO ARE OR HAVE BEEN ENROLLED IN A CHEMICAL DEPENDENCY/SUBSTANCEABUSE PROGRAM, SOME INFORMATION MAY BE OMITTED. This clinical summary was aggregated from multiple sources. Caution should be exercised in using it in the provision of clinical care. This summary normalizes information from multiple sources, and as a consequence, information in this document may materially change the coding, format and clinical context of patient data. In addition, data may be omitted in some cases. CLINICAL DECISIONS SHOULD BE BASED ON THE PRIMARY CLINICAL RECORDS. [facility] [email or web address] [facility]. provides no warranty or guarantee of the accuracy or completeness of information in this document.
--- NOTE | 2025-05-14 09:09 | RAD_ITS ---
PROCEDURE: RIBS UNI MIN 3V W/PA CHEST 05/14/2025 REASON FOR EXAM: PAIN Pain following injury. TECHNIQUE: Procedure Code: RADRIB Modality: DX Procedure: RIBS UNI MIN 3V W/PA CHEST COMPARISON: None FINDINGS: Findings: No rib fracture is seen. Lungs are clear. Other: RAD/Ribs Uni Min 3V w/PA Chest IMPRESSION: Unremarkable examination. Reading Location: [facility]
[2025-05-14 10:45] LABS: Hematocrit 45.6 % (40-54); Hemoglobin 15.3 g/dL (13.0-16.5); Immature Granulocytes Count 0.010 X10^3/uL (0.0-0.0); Mean Corp Hgb Conc 33.6 g/dL (32-36); Mean Corpuscular Volume 83.7 fL (80-94); Mean Platelet Vol. 10.7 fl (6.2-12.0); NRBC Flagged by Analyzer 0 % (0-5); Platelet Count 192 K/mm3 (150-450); RBC Distribution Width CV 13.1 % (11.6-14.6); RBC Distribution Width SD 39.7 fl (35.1-43.9); Red Blood Count 5.45 M/mm3 (4.6-6.2); White Blood Count 6.2 K/mm3 (4.4-11.0)
[2025-05-14 11:13] LABS: AST(SGOT) 22 U/L (<=37); Alanine Aminotransfer ALT/SGPT 26 U/L (<=46); Albumin, Serum 4.5 g/dL (3.4-4.8); Alkaline Phosphatase 44 U/L (40-129); Anion Gap 12 (5-15); BUN 10 mg/dL (4-19); BUN/Creat Ratio 12.5 RATIO (10-20); Calcium,Total 9.8 mg/dL (7.6-11.0); Carbon Dioxide 26.0 mmol/L (21.0-32.0); Chloride 104 mmol/L (98-108); Cholesterol 190 mg/dL (<=200); Globulin 2.3 g/dL (2.2-4.2); Glucose 113 mg/dL (70-99); Low Density Lipoprotein Calc. 98 mg/dL; PSA,Total - Annual Screen 4.29 ng/mL (0.02-4.00); Potassium 4.3 mmol/L (3.3-5.1); Triglycerides 239 mg/dL; Very Low Density Lipoprotein 48 mg/dL (5-40); cholesterol:hdl ratio screen 4.26
== END | disposition home or self-care (01) ==
PROVIDERS: PCP Family Medicine; Referring Provider Family Medicine; Visit Provider Family Medicine
DX: I10 Essential (primary) hypertension (principal); E78.1 Pure hyperglyceridemia; R07.81 Pleurodynia; R73.03 Prediabetes; Z12.5 Encounter for screening for malignant neoplasm of prostate
CPT/HCPCS: 36415; 71101; 80053; 80061; 83036; 84153; 85025; G0103